=== PATIENT | male | born 1980 | race Caucasian/White ===

== ENCOUNTER 2016-07-14 11:56 | Emergency (ER) | payer MEDICAID, OTHER ==
[~2016-07-14 11:56] MED LIST: ZAN150T
[2016-07-14 12:04] VITALS: BP 136/82; PULSE 92; RESP 16; O2SAT 95
--- NOTE | 2016-07-14 12:14 | ED.REPORT ---
HPI-General Illness Date of Service Jul 14, 2016 ED Provider: Nile Hicks MD 36 year old male with a history of heroin and opioid abuse presents to the ER requesting a prescription for Suboxone. Currently he denies any symptoms of narcotic withdrawal, and any recent illness. Last narcotic use was 7 months ago , and he states that he "has no desire to use narcotics". He has been using Suboxone from friends and other sources, not prescribed to him. Nursing Notes Stated Complaint: SUBOXONE Chief Complaint: General Complaint Nursing Notes Reviewed: Yes Allergies: Coded Allergies: methylphenidate HCl (Verified Allergy, Severe, 07/03/11) tachycardia, palpitations Scheduled Buprenorphine/Naloxone 8-2 mg (Buprenorphine/Naloxone 8-2 mg) 1 Each Tab.subl 1 TABLET SL DAILY Miscellaneous Medications Ranitidine 150 MG Tablet (Zantac 150 MG Tablet) 150 Mg Tab General Time Seen by MD: 12:13 Chief Complaint Other (Suboxone Prescription) Hx Obtained From: Patient Arrived By: Walk-in Associated with: Denies: Chest pain, Diaphoresis, Dizziness, Fever, Nausea, Shortness of breath, Vomiting Pertinent Negative: Pt denies other symptoms Context Related History: Reports Drug dependence Similar Sx Previous: Yes Past Medical History Past Medical History Ulcercolitis Smoking History Unknown if Ever Smoker Social History Heroin and opioid abuse. Denies all other drug use. Drug Use: THC Ambulatory Status Independent Review of Systems Full Review of Systems Constitutional: Denies: Chills, Fever Respiratory: Denies: Non-productive cough, Shortness of breath Cardiovascular: Denies: Chest pain GI: Denies: Constipation, Diarrhea, Nausea, Vomiting Skin: Denies Diaphoresis Neurologic: Denies: Shaking Complete sys rev & neg: except as marked. Physical Exam Vital Signs Vital Signs Date Time Temp Pulse Resp B/P Pulse Ox O2 Delivery O2 Flow Rate FiO2 07/14/16 12:04 36.2 92 16 136/82 95 Room Air Initial VS: Reviewed General/Constitutional: Well-developed, Well-nourished Head / Eyes: Atraumatic, Normocephalic Neck: Supple, Non-tender, Full range of motion Extremities: Vascular intact, Neuro intact, No swelling, No tenderness Skin: Warm, Dry, No cyanosis Neurologic: Alert, Oriented, Nonfocal Psychiatric: Mood/affect normal, Behavior normal, Normal thought content Re-Eval/Medical Decision Source of Hx: Old records Time of Eval: 12:18 Re-Evaluation/Progress Note: Discussed plan to discharge with instructions for follow-up. Patient is amenable to the plan. Return precautions given. All other questions addressed. Counseled Regarding: Diagnosis, Lab results, Need for follow-up, When/why to return to ED Discharge & Departure Primary Impression: Opioid dependence with withdrawal Disposition: Home Discharge Condition All VS Reviewed: Yes Condition: Stable Additional Instructions: Follow-up with [facility] next week or [facility]. Referrals: [facility] (PCP) AUGUSTINE Espinoza Attestation Portions of this note were transcribed by Luis Alberto Farias. I, Dr. Hicks, personally performed the history, physical exam and medical decision-making; I reviewed and confirmed the accuracy of the information in the transcribed note. Signed by: Alexis Aguayo, 07/14/2016 and 12:55 copies to: Nile Cain MD Jul 14, 2016 12:13 LUIS ALBERTO FARIAS Jul 14, 2016 12:22
[2016-07-14] MEDS ORDERED: Buprenorphine 2 mg SL Tablet SL ONE (12:30)
[2016-07-14] MEDS ORDERED: BUPR1TAB36 SL (12:33)
== END 2016-07-14 12:47 | disposition home or self-care (01) ==
LOC: SED 11:56
DX: F11.23 Opioid dependence with withdrawal (principal); F12.10 Cannabis abuse, uncomplicated; Z88.8 Allergy status to other drugs, medicaments and biological substances

== ENCOUNTER 2016-11-30 22:27 | Emergency (ER) | payer OTHER ==
[~2016-11-30] VITALS: Ht 177.8 cm; Wt 81.8 kg
[~2016-11-30 22:27] MED LIST changes: +BUPR1TAB36 SL
[2016-11-30 22:57] VITALS: BP 144/89; PULSE 91; RESP 16; O2SAT 99
--- NOTE | 2016-11-30 23:47 | ED.REPORT ---
HPI-General Illness Date of Service Nov 30, 2016 ED Provider: Timothy Hernadez MD A 36 year old male with a history of opioid dependence on Suboxone presents to the ED requesting Suboxone. The pt missed his Suboxone appointment on 2016 and does not have another appointment until 12/05/2016. He has been on Suboxone for 4.5 months and his last dose was this morning. The pt has not relapsed. Nursing Notes Stated Complaint: SUBSTANCE ABUSE Chief Complaint: Substance Abuse Nursing Notes Reviewed: Yes Allergies: Coded Allergies: methylphenidate HCl (Verified Allergy, Severe, 07/03/11) tachycardia, palpitations Scheduled Buprenorphine/Naloxone 8-2 mg (Buprenorphine/Naloxone 8-2 mg) 1 Each Tab.subl 1 TABLET SL DAILY Buprenorphine/Naloxone 8-2 mg (Buprenorphine/Naloxone 8-2 mg) 1 Each Tab.subl 1 TABLET SL BID Miscellaneous Medications Ranitidine 150 MG Tablet (Zantac 150 MG Tablet) 150 Mg Tab General Time Seen by MD: 23:43 Chief Complaint Other (Suboxone request) Hx Obtained From: Patient Arrived By: Walk-in Sudden in Onset?: No Onset Occurred: 3 days ago Symptom Duration: Since onset Recent Healthcare: Recent doctor visit Similar Sx Previous: Yes Past Medical History Past Medical History Ulcercolitis Past Surgical History none reported Smoking History Unknown if Ever Smoker Social History Heroin and opioid abuse, on Suboxone Drug Use: THC Ambulatory Status Independent Review of Systems medication request Full Review of Systems Respiratory: Denies: Non-productive cough, Shortness of breath Cardiovascular: Denies: Chest pain GI: Denies: Abdominal pain Musculoskeletal: Denies: Back pain, Neck pain Skin: Denies Rash Complete sys rev & neg: except as marked. Physical Exam Vital Signs Vital Signs Date Time Temp Pulse Resp B/P Pulse Ox O2 Delivery O2 Flow Rate FiO2 11/30/16 22:57 36.9 91 16 144/89 99 Room Air Initial VS: Reviewed, Vital signs normal General/Constitutional: Awake, Alert Head / Eyes: Atraumatic, Normocephalic, PERRL, EOMI ENT: Atraumatic, Airway patent, Mucous membranes moist Neck: Atraumatic, Supple, Full range of motion Respiratory / Chest: Atraumatic, Breath sounds NL, Breath sounds = bilat, No respiratory distress Cardiovascular: Heart rate NL, Regular rhythm, Heart sounds NL Abdomen: Atraumatic, Soft, Non-tender Back: Atraumatic, Full range of motion Upper Extremities Upper Extremity / MS: Atraumatic, Full range of motion Lower Extremity / Pelvis / MS: Atraumatic, Full range of motion Skin: Atraumatic, Color NL, No rash, Warm, Dry Neurologic: Oriented X3, Speech NL, No motor deficits, No sensory deficits Psychiatric: Affect NL, Mood NL Re-Eval/Medical Decision Med Decision/Clinical Course 36-year-old male who missed his Suboxone appointment. He has not relapsed but is unable to get into the clinic until next Sunday. I will write him a bridging prescription until that time. Source of Hx: Old records Time of Eval: 23:43 Patient Status: Condition improved Re-Evaluation/Progress Note: Pt informed of the diagnosis and plan for discharge during the initial interview. The pt understands and agrees with the plan. All questions are addressed at this time. Counseled Regarding: Diagnosis, Need for follow-up, When/why to return to ED Discharge & Departure Primary Impression: Opioid dependence on maintenance agonist therapy, no symptoms Disposition: Home Discharge Condition All VS Reviewed: Yes Condition: Stable Additional Instructions: Your Suboxone is refilled to last through Sunday. Congratulations on staying clean. Try not to miss your appointments, because we cannot prescribe out of the emergency room on a regular basis. Referrals: [facility] Scribe Attestation Portions of this note were transcribed by Gayatri Alicea. I, Dr. Hernadez personally performed the history, physical exam and medical decision-making; I reviewed and confirmed the accuracy of the information in the transcribed note. copies to: [facility] Timothy Hernadez MD Nov 30, 2016 23:47 GAYATRI ALICEA Nov 30, 2016 23:52
[2016-12-01] MEDS ORDERED: Buprenorphine 2 mg SL Tablet SL ONE (00:05)
[2016-12-01] MEDS ORDERED: BUPR1TAB36 SL (00:19)
== END 2016-12-01 00:39 | disposition home or self-care (01) ==
LOC: SED 22:27
DX: F11.20 Opioid dependence, uncomplicated (principal)